=== PATIENT | female | born 1960 | race Caucasian/White ===

== ENCOUNTER 2016-04-21 15:31 | Inpatient (IN) | payer MEDICARE, OTHER ==
[~2016-04-21] VITALS: Ht 165.1 cm; Wt 82.9 kg
[2016-04-21] VITALS (338 sets, daily range): BP systolic 145–150; BP diastolic 90–94; PULSE 93–112; TEMP 97.5–98; O2SAT 90–100
[~2016-04-21 15:31] MED LIST: 00186-0370-20 IH; 00186-0372-20 IH; ACTOS 15MG TAB15 MG PO; ALBUTEROL0.09 MG/A4 IH; ALLEGRA180 MG PO; ALLEGRA60 MG PO; ALPRAZOLAM1 MG PO; ASACOL PO; ASPIRIN 81M81 MG/TA2 PO; BENADRYL PO; BENADRYL25 M2 PO; BENADRYL25 MG PO; BUSPAR DIVIDOSE15 MG PO; BYSTOLIC5 MG PO; CARAFATE 1GM1 G PO; CEFZIL250 MG PO; CELEXA10 MG PO; CHANTIX0.5 MG PO; CILOSTAZOL; CLONAZEPAM PO; CLOPIDOGREL PO; COLACE 100100 MG/CAP PO; DARVOCET N 101 UDTAB PO; DARVOCET-N-101 UDTAB PO; DIOVAN 160MG160 MG PO; DIOVAN PO; DIOVAN80 M1 PO; EXCEDRIN 250 MG1 TAB PO; EXCEDRIN BACK &1 TAB PO; EXCEDRIN1 TAB PO; FLUOXETINE PO; GEMCOR600 MG PO; GEODON 20 MG20 MG PO; GEODON80 MG PO; IBUPROFEN400 MG PO; LEVAQUIN 5500 MG/TA1 PO; LORTAB 5/500 501 TAB PO; MELATONIN3 M1 PO; MELOXICAM PO; NAPROSYN500 MG PO; NASONEX SPRAY; NASONEX SPRAY NS; NEXIUM 40MG40 MG PO; NEXIUM40 MG PO; NIACIN 250250 MG/CAP PO; NIASPAN500 MG PO; NORCO 325 MG-51 TAB PO; PLAVIX 75MG TAB75 MG PO; PRAVACHOL 40MG40 MG PO; PREDNISONE20 MG PO; PREMARIN0.625 MG PO; PROAIR HFA0.09 MG/AC IH; PROZAC 20MG20 MG PO; PROZAC40 MG PO; REMERON45 MG PO; ROBAXIN500 MG PO; ROZEREM 8MG TABL8 MG PO; SEROQUEL100 MG PO; STOOL SOFTENER100 MG PO; SYMBICORT1 AE2 IH; SYNTHROID0.05 MG/TA PO; TETRACYCLINE PO; TYLENOL 500MG500 MG PO; VALIUM 5MG T5 MG/TAB PO; WELLBUTRIN SR150 M1 PO; WELLBUTRIN XL150 MG PO; WELLBUTRIN XL300 M1 PO; XANAX 1MG1 MG PO; XANAX XR0.5 MG PO; XANAX0.5 MG PO; XANAX1 MG PO; ZIPRASIDONE; ZITHROMAX 250M250 MG PO; ZITHROMAX Z PA250 MG PO
[2016-04-21] MEDS ORDERED: IPRATROPIUM BROM3 M1 IH (15:51)
[2016-04-21 16:20] LABS: BASO # 0.1 (0.0-0.2); BASO % 0.3 % (0.0-2.0); EOS % 0.2 % (0-4.0); GRAN # 13.1 (1.4-6.5); GRAN % 80.4 % (42.2-75.2); HEMATOCRIT 39.4 % (37.0-47.0); HEMOGLOBIN 14.1 g/dl (12.5-16.0); LYMPH # 1.7 (1.2-3.4); LYMPH % 10.7 % (20.0-51.0); MEAN CELL VOLUME 80 fl (80.0-100.0); MEAN CORPUSCULAR HEMOGLOBIN 29 pg (27.0-31.0); MEAN CORPUSCULAR HGB CONC 36 g/dl (33.0-37.0); MEAN PLATELET VOLUME 8.3 fl (7.4-10.4); MONO # 1.2 (0.1-0.6); MONO % 7.2 % (1.7-9.3); PLATELET COUNT 419 K/mm3 (130-400); REDCELL DISTRIBUTION WIDTH-CV 13.3 % (11.5-14.5); WHITE BLOOD COUNT 16.3 K/mm3 (4.8-10.8)
[2016-04-21] MEDS ORDERED: BENADRYL25 M2 PO (16:37)
[2016-04-21] MEDS ORDERED: BUSPAR DIVIDOSE15 MG PO (16:38)
[2016-04-21] MEDS ORDERED: INVEGA9 MG PO (16:39)
[2016-04-21] MEDS ORDERED: PROZAC40 MG PO (16:40)
[2016-04-21 16:42] LABS: ADJUSTED CALCIUM 9.2 mg/dL (8.4-10.2); ALANINE AMINOTRANSFERASE 41 U/L (9-52); ALKALINE PHOSPHATASE 119 U/L (50-136); ANION GAP 13 mmol/L (7-16); BILIRUBIN,TOTAL 0.9 mg/dL (0.0-1.0); BLOOD UREA NITROGEN 10 mg/dL (7-17); CALCIUM 9.2 mg/dL (8.4-10.2); CARBON DIOXIDE 22 mmol/L (22-30); CREATININE, serum 0.59 mg/dL (0.52-1.25); GLUCOSE 219 mg/dL (74-106); POTASSIUM 3.1 mmol/L (3.4-5.0); TOTAL PROTEIN 7.1 gm/dL (6.4-8.2)
[2016-04-21 16:44] LABS: CHLORIDE 81 mmol/L (98-107); SODIUM 115 mmol/L (137-145)
[2016-04-21 16:53] LABS: B-TYPE NATRIURETIC PEPTIDE 4060 pg/mL (0-125)
[2016-04-21 16:58] LABS: TROPONIN-I < 0.012 ng/mL (0.000-0.034)
[2016-04-21] MEDS ORDERED: REMERON 15M15 MG/TA1 PO (16:58)
[2016-04-21] MEDS ORDERED: ROZEREM 8MG TABL8 MG PO (16:59)
[2016-04-21] MEDS ORDERED: COLACE 100100 MG/CAP PO (17:00)
[2016-04-21] MEDS ORDERED: PRAVACHOL 40MG40 MG PO (17:00)
[2016-04-21] MEDS ORDERED: MELAT3MGTAB PO (17:01)
[2016-04-21] MEDS ORDERED: ASPIRIN 81M81 MG/TA2 PO (17:01)
[2016-04-21] MEDS ORDERED: NEXIUM 20MG20 MG PO (17:02)
[2016-04-21] MEDS ORDERED: 00186-0372-20 (17:02)
[2016-04-21] MEDS ORDERED: GLUCOPHAGE500 MG/TAB PO (17:03)
[2016-04-21] MEDS ORDERED: BYSTOLIC10 MG PO (17:03)
[2016-04-21] MEDS ORDERED: XANAX 1MG1 MG PO (17:04)
[2016-04-21 21:13] LABS: PH 5 (5-8); SQUAMOUS EPITHELIAL 0-2 /hpf; URINE APPEARANCE Clear; URINE BACTERIA None Seen /hpf; URINE BILIRUBIN Negative (NEGATIVE); URINE BLOOD 2+ (NEGATIVE); URINE COLOR Straw; URINE GLUCOSE 3+ (NEGATIVE); URINE KETONE Trace (NEGATIVE); URINE RBC 0-2 /hpf; URINE UROBILINOGEN Negative (NEGATIVE); URINE WBC 0-2 /hpf
[2016-04-21 21:25] LABS: INFLUENZA B NEGATIVE
[2016-04-21 23:14] LABS: SODIUM 112 mmol/L (137-145)
[2016-04-22] VITALS (822 sets, daily range): BP systolic 120–162; BP diastolic 69–120; PULSE 98–121; TEMP 97–98.1; O2SAT 92–100
[2016-04-22 05:55] LABS: BASO % 0.1 % (0.0-2.0); EOS % 0.1 % (0-4.0); GRAN # 8.6 (1.4-6.5); GRAN % 78.5 % (42.2-75.2); HEMATOCRIT 38.9 % (37.0-47.0); HEMOGLOBIN 13.6 g/dl (12.5-16.0); LYMPH # 1.2 (1.2-3.4); LYMPH % 10.5 % (20.0-51.0); MEAN CELL VOLUME 82 fl (80.0-100.0); MEAN CORPUSCULAR HEMOGLOBIN 29 pg (27.0-31.0); MEAN CORPUSCULAR HGB CONC 35 g/dl (33.0-37.0); MEAN PLATELET VOLUME 8.4 fl (7.4-10.4); MONO % 9.2 % (1.7-9.3); PLATELET COUNT 439 K/mm3 (130-400); RED BLOOD COUNT 4.74 M/mm3 (4.10-5.30); REDCELL DISTRIBUTION WIDTH-CV 13.5 % (11.5-14.5); WHITE BLOOD COUNT 10.9 K/mm3 (4.8-10.8)
[2016-04-22 06:06] LABS: ADJUSTED CALCIUM 9.2 mg/dL (8.4-10.2); ALBUMIN 4.1 gm/dL (3.5-5.0); BILIRUBIN,TOTAL 0.7 mg/dL (0.0-1.0); CALCIUM 9.3 mg/dL (8.4-10.2); CREATININE, serum 0.6 mg/dL (0.52-1.25); POTASSIUM 3.3 mmol/L (3.4-5.0)
[2016-04-22 13:38] LABS: CALCIUM 9.2 mg/dL (8.4-10.2); CREATININE, serum 0.57 mg/dL (0.52-1.25); POTASSIUM 4.4 mmol/L (3.4-5.0)
[2016-04-22 14:03] LABS: ARTERIAL BLD GAS O2 SATURATION 94.5 % (92-100); ARTERIAL BLD GAS TCO2 CT 23.7; ARTERIAL BLOOD GAS BASE EXCESS -0.1 (-2-2); ARTERIAL BLOOD GAS HCO3 22.7 meq/L (22-26); ARTERIAL BLOOD GAS PHT 7.47 C (7.35-7.45); ARTERIAL BLOOD GAS PO2 72.1 mmHg (80-100); ARTERIAL BLOOD GAS PO2T 72.1 (80-100); ARTERIAL BLOOD GAS pH 7.47 (7.35-7.45); OXYHEMOGLOBIN 93.6 %
[2016-04-22 14:04] LABS: ALLEN TEST YES; ALLENS TEST RESULT PASS; ATS? YES
[2016-04-23 00:39] VITALS: BP 136/51; PULSE 100; TEMP 98.5
[2016-04-23 03:44] VITALS: BP 138/83; PULSE 78; TEMP 98.3
[2016-04-23 05:20] LABS: BASO % 0.1 % (0.0-2.0); GRAN % 86.3 % (42.2-75.2); HEMOGLOBIN 12.7 g/dl (12.5-16.0); LYMPH # 0.9 (1.2-3.4); LYMPH % 6.1 % (20.0-51.0); MEAN CELL VOLUME 83 fl (80.0-100.0); MEAN CORPUSCULAR HEMOGLOBIN 29 pg (27.0-31.0); MEAN CORPUSCULAR HGB CONC 35 g/dl (33.0-37.0); MEAN PLATELET VOLUME 8.7 fl (7.4-10.4); MONO # 0.9 (0.1-0.6); MONO % 6.1 % (1.7-9.3); PLATELET COUNT 406 K/mm3 (130-400); RED BLOOD COUNT 4.42 M/mm3 (4.10-5.30); REDCELL DISTRIBUTION WIDTH-CV 13.7 % (11.5-14.5)
[2016-04-23 05:22] LABS: HEMATOCRIT 36.5 % (37.0-47.0)
[2016-04-23 05:28] LABS: CALCIUM 8.9 mg/dL (8.4-10.2); CREATININE, serum 0.58 mg/dL (0.52-1.25); POTASSIUM 3.8 mmol/L (3.4-5.0)
[2016-04-23 07:28] VITALS: BP 138/71; PULSE 97; TEMP 98.7
[2016-04-23 11:55] VITALS: BP 129/69; PULSE 63; TEMP 97.5
[2016-04-23 15:48] VITALS: BP 146/81; PULSE 90; TEMP 97.7
[2016-04-23 19:46] VITALS: BP 141/69; PULSE 80; TEMP 98.4
[2016-04-24] VITALS (7 sets, daily range): BP systolic 110–146; BP diastolic 60–74; PULSE 70–90; TEMP 97.1–98.5
[2016-04-24 04:57] LABS: BASO % 0.1 % (0.0-2.0); GRAN # 12.6 (1.4-6.5); GRAN % 89.5 % (42.2-75.2); LYMPH # 0.7 (1.2-3.4); LYMPH % 4.7 % (20.0-51.0); MEAN CELL VOLUME 86 fl (80.0-100.0); MEAN CORPUSCULAR HGB CONC 34 g/dl (33.0-37.0); MEAN PLATELET VOLUME 8.8 fl (7.4-10.4); MONO # 0.7 (0.1-0.6); MONO % 4.8 % (1.7-9.3); PLATELET COUNT 325 K/mm3 (130-400); RED BLOOD COUNT 3.93 M/mm3 (4.10-5.30); REDCELL DISTRIBUTION WIDTH-CV 14.2 % (11.5-14.5); WHITE BLOOD COUNT 14.1 K/mm3 (4.8-10.8)
[2016-04-24 05:01] LABS: HEMATOCRIT 33.9 % (37.0-47.0); HEMOGLOBIN 11.5 g/dl (12.5-16.0); MEAN CORPUSCULAR HEMOGLOBIN 29 pg (27.0-31.0)
[2016-04-24 05:16] LABS: CALCIUM 8.9 mg/dL (8.4-10.2); CREATININE, serum 0.59 mg/dL (0.52-1.25); POTASSIUM 3.4 mmol/L (3.4-5.0)
[2016-04-25 03:31] VITALS: BP 143/80; PULSE 80; TEMP 97.8
[2016-04-25 08:54] VITALS: BP 126/74; PULSE 78; TEMP 97.5
[2016-04-25 09:26] LABS: POTASSIUM 3.1 mmol/L (3.4-5.0)
[2016-04-25] MEDS ORDERED: ZITHROMAX TRI-500 MG PO (11:26)
[2016-04-25] MEDS ORDERED: PREDNISONE20 MG PO (11:27)
[2016-04-25] MEDS ORDERED: KLOR-CON M2020 MEQ PO (11:29)
[2016-04-25 12:51] VITALS: BP 106/70; PULSE 90; TEMP 98.4
[2016-04-25 14:45] VITALS: BP 127/72; PULSE 85
== END 2016-04-25 16:33 | disposition home or self-care (01) | DRG 640 ==
LOC: COL.ER 15:31 → ICU 17:14 → COL.ER 17:14 → MEDICAL 04-22 15:20 → ICU 04-22 15:20 → MEDICAL 04-22 15:20
PROVIDERS: Emergency Medicine; Internal Medicine; Internal Medicine Nephrology
DX: E87.1 Hypo-osmolality and hyponatremia (principal); J96.01 Acute respiratory failure with hypoxia; I50.23 Acute on chronic systolic (congestive) heart failure; J44.1 Chronic obstructive pulmonary disease with (acute) exacerbation; E87.6 Hypokalemia; I10 Essential (primary) hypertension; E78.5 Hyperlipidemia, unspecified; E11.9 Type 2 diabetes mellitus without complications; F17.210 Nicotine dependence, cigarettes, uncomplicated; I73.9 Peripheral vascular disease, unspecified
CPT/HCPCS: 99223-AI; 99232-AI; 99233-AI; 99239; J0456; J0696; J1650; J1815; J1940; J1956; J2920; J2930; J7030; J7050; J7512

== ENCOUNTER → 2016-10-14 | Outpatient (CLI) | payer MEDICARE ==
[~2016-10-14] MED LIST changes: +00186-0372-20; +BYSTOLIC10 MG PO; +GLUCOPHAGE500 MG/TAB PO; +INVEGA9 MG PO; +IPRATROPIUM BROM3 M1 IH; +KLOR-CON M2020 MEQ PO; +MELAT3MGTAB PO; +NEXIUM 20MG20 MG PO; +REMERON 15M15 MG/TA1 PO; +ZITHROMAX TRI-500 MG PO
== END ==
LOC: MC.RAD 10-10 09:20
DX: Z12.31 Encounter for screening mammogram for malignant neoplasm of breast (principal)

== ENCOUNTER 2017-03-11 08:01 | Outpatient (RCR) | payer MEDICARE | END 2017-06-09 | disposition home or self-care (01) | LOC: MKS.ESL.PT | DX: M51.16 Intervertebral disc disorders with radiculopathy, lumbar region (principal) | CPT/HCPCS: G0283-GP; G8978-GP; G8979-GP ==

== ENCOUNTER → 2017-12-09 | Outpatient (CLI) | payer MEDICARE ==
[~2017-12-09] MED LIST changes: +ACTOS30 MG PO; +ANORO IH; +ASPIRIN E.C. 8181 MG PO; +BACTROBAN NASA0.9 GM NS; +BRILINTA90 MG PO; +FARXIGA10 PO; +FLONASEALLERGY NS; +GLUCOTROL10 MG PO; +MEDROL 4MG DOSPA4 MG PO; +NEURONTIN600 MG/TAB PO; +PRAVACHOL80 MG PO; +REXULTI3 MG PO; +TRULICITY0.75 MG/0. SQ; +VASOTEC 2.2.5 MG/TAB PO; +VENTOLIN0.09 MG IH; +VIIBRYD20 MG PO; +VOLTAREN GEL 1%1 TU TP; +ZEBETA 5MG5 MG PO
[2017-12-09 09:45] LABS: HEMATOCRIT 37.6 % (37.0-47.0); HEMOGLOBIN 11.8 g/dl (12.5-16.0); MEAN CELL VOLUME 85 fl (80.0-100.0); MEAN CORPUSCULAR HEMOGLOBIN 27 pg (27.0-31.0); MEAN CORPUSCULAR HGB CONC 31 g/dl (33.0-37.0); MEAN PLATELET VOLUME 8.8 fl (7.4-10.4); PLATELET COUNT 290 K/mm3 (130-400); RED BLOOD COUNT 4.44 M/mm3 (4.10-5.30); REDCELL DISTRIBUTION WIDTH-CV 20.4 % (11.5-14.5)
[2017-12-09 09:56] LABS: ALBUMIN 4.1 gm/dL (3.5-5.0); BILIRUBIN,TOTAL 0.3 mg/dL (0.0-1.0); CALCIUM 9.5 mg/dL (8.4-10.2); CREATININE, serum 0.73 mg/dL (0.52-1.25); POTASSIUM 3.7 mmol/L (3.4-5.0); TOTAL PROTEIN 7.1 gm/dL (6.4-8.2)
[2017-12-09 09:57] LABS: INR 0.9 (0.8-3.0); PROTHROMBIN TIME 10.5 SECONDS (9.7-12.8)
== END ==
LOC: COL.LAB 09:00
PROVIDERS: Family Medicine
DX: E11.9 Type 2 diabetes mellitus without complications (principal); I10 Essential (primary) hypertension; J44.9 Chronic obstructive pulmonary disease, unspecified; I42.9 Cardiomyopathy, unspecified; I25.2 Old myocardial infarction; F25.9 Schizoaffective disorder, unspecified; I73.9 Peripheral vascular disease, unspecified

== ENCOUNTER → 2017-12-10 | Outpatient (CLI) | payer MEDICARE ==
[2017-12-10 12:17] LABS: HEMATOCRIT 39.6 % (37.0-47.0); HEMOGLOBIN 12.3 g/dl (12.5-16.0); MEAN CELL VOLUME 86 fl (80.0-100.0); MEAN CORPUSCULAR HEMOGLOBIN 27 pg (27.0-31.0); MEAN CORPUSCULAR HGB CONC 31 g/dl (33.0-37.0); PLATELET COUNT 357 K/mm3 (130-400); RED BLOOD COUNT 4.59 M/mm3 (4.10-5.30); REDCELL DISTRIBUTION WIDTH-CV 20.5 % (11.5-14.5)
[2017-12-10 12:18] LABS: ALBUMIN 4.4 gm/dL (3.5-5.0); BILIRUBIN,TOTAL 0.4 mg/dL (0.0-1.0); CALCIUM 10.4 mg/dL (8.4-10.2); CREATININE, serum 0.93 mg/dL (0.52-1.25); POTASSIUM 4.4 mmol/L (3.4-5.0); TOTAL PROTEIN 7.3 gm/dL (6.4-8.2)
[2017-12-10 12:19] LABS: INR 0.9 (0.8-3.0); PROTHROMBIN TIME 10.2 SECONDS (9.7-12.8)
[2017-12-10 12:38] LABS: BAND 5 % (0-10); EOSINOPHIL 1 % (0-4); LYMPHOCYTE 25 % (20.0-51.0); NEUTROPHILS 67 % (42.0-75.2); PLATELET ESTIMATE NORMAL (NORMAL)
== END ==
LOC: ZCOL.LAB 12:01
PROVIDERS: Family Medicine
DX: J44.1 Chronic obstructive pulmonary disease with (acute) exacerbation (principal); Z79.82 Long term (current) use of aspirin

== ENCOUNTER 2018-07-17 13:11 | Emergency (ER) | payer MEDICARE ==
[~2018-07-17] VITALS: Ht 165.1 cm; Wt 75.5 kg
[2018-07-17 13:27] VITALS: TEMP 97.4
[2018-07-17 13:50] LABS: COLLECTION METHOD CLEAN CATCH
[2018-07-17 14:02] LABS: BUDDING YEAST Present /hpf; PH 5 (5-8); SQUAMOUS EPITHELIAL 0-2 /hpf; URINE APPEARANCE Cloudy; URINE BACTERIA None Seen /hpf; URINE BILIRUBIN Negative (NEGATIVE); URINE BLOOD 1+ (NEGATIVE); URINE COLOR Yellow; URINE GLUCOSE 3+ (NEGATIVE); URINE KETONE Negative (NEGATIVE); URINE LEUKOCYTE ESTERASE 3+ (NEGATIVE); URINE NITRATE Negative (NEGATIVE); URINE PROTEIN(semi-quant) 1+ (NEGATIVE); URINE UROBILINOGEN Negative (NEGATIVE)
[2018-07-17 14:14] LABS: BASO % 0.4 % (0.0-2.0); EOS # 0.1 (0.0-0.7); EOS % 1.9 % (0-4.0); GRAN # 5.6 (1.4-6.5); GRAN % 74.8 % (42.2-75.2); HEMATOCRIT 38.7 % (37.0-47.0); HEMOGLOBIN 11.6 g/dl (12.5-16.0); LYMPH # 1.2 (1.2-3.4); LYMPH % 15.7 % (20.0-51.0); MEAN CELL VOLUME 76 fl (80.0-100.0); MEAN CORPUSCULAR HEMOGLOBIN 23 pg (27.0-31.0); MEAN CORPUSCULAR HGB CONC 30 g/dl (33.0-37.0); MONO # 0.5 (0.1-0.6); MONO % 6.5 % (1.7-9.3); PLATELET COUNT 239 K/mm3 (130-400); REDCELL DISTRIBUTION WIDTH-CV 19.9 % (11.5-14.5)
[2018-07-17 14:28] LABS: ALBUMIN 3.9 gm/dL (3.5-5.0); BILIRUBIN,TOTAL 0.3 mg/dL (0.0-1.0); C-REACTIVE PROTEIN 3.9 mg/dL (0.0-0.9); CALCIUM 9.7 mg/dL (8.4-10.2); CREATININE, serum 0.8 (0.52-1.25); POTASSIUM 4.1 mmol/L (3.4-5.0); TOTAL PROTEIN 6.8 gm/dL (6.4-8.2)
[2018-07-17] MEDS ORDERED: PYRIDIUM 100MG100 MG PO (15:14)
[2018-07-17] MEDS ORDERED: MACROBID 1100 MG/CAP PO (15:14)
[2018-07-17 15:41] VITALS: BP 122/85; PULSE 96
== END 2018-07-17 15:42 | disposition home or self-care (01) ==
LOC: COL.ER 13:11
PROVIDERS: Nurse Practitioner
DX: N39.0 Urinary tract infection, site not specified (principal); E11.9 Type 2 diabetes mellitus without complications; E78.5 Hyperlipidemia, unspecified; I10 Essential (primary) hypertension; F17.210 Nicotine dependence, cigarettes, uncomplicated; F32.9 Major depressive disorder, single episode, unspecified; Z90.49 Acquired absence of other specified parts of digestive tract; Z90.710 Acquired absence of both cervix and uterus; Z95.818 Presence of other cardiac implants and grafts; Z79.82 Long term (current) use of aspirin; Z79.51 Long term (current) use of inhaled steroids

== ENCOUNTER → 2018-07-30 | Outpatient (CLI) | payer MEDICARE ==
[~2018-07-30] MED LIST changes: +MACROBID 1100 MG/CAP PO; +PYRIDIUM 100MG100 MG PO
== END ==
LOC: COL.RAD 07:34
DX: Z01.812 Encounter for preprocedural laboratory examination (principal); I70.0 Atherosclerosis of aorta; R31.29 Other microscopic hematuria; Z90.49 Acquired absence of other specified parts of digestive tract; Z90.710 Acquired absence of both cervix and uterus; Z98.890 Other specified postprocedural states
CPT/HCPCS: Q9967

== ENCOUNTER → 2019-03-08 | Outpatient (CLI) | payer MEDICARE, OTHER | LOC: MC.RAD 10:18 | DX: Z12.31 Encounter for screening mammogram for malignant neoplasm of breast (principal) ==

== ENCOUNTER 2020-05-23 07:43 | Emergency (ER) | payer MEDICARE ==
[~2020-05-23] VITALS: Ht 165.1 cm; Wt 61.4 kg
[~2020-05-23 07:43] MED LIST changes: -MELAT3MGTAB PO; +MELATIN 3 MG-11 TAB PO
[2020-05-23 08:01] VITALS: BP 143/74; TEMP 98
[2020-05-23 08:09] LABS: COLLECTION METHOD CLEAN CATCH
[2020-05-23 08:16] LABS: MUCOUS Present /lpf; PH 5 (5-8); SQUAMOUS EPITHELIAL 0-2 /hpf; URINE APPEARANCE Hazy; URINE BACTERIA Moderate /hpf; URINE BILIRUBIN Negative (NEGATIVE); URINE BLOOD Negative (NEGATIVE); URINE COLOR Yellow; URINE GLUCOSE Negative (NEGATIVE); URINE KETONE Negative (NEGATIVE); URINE LEUKOCYTE ESTERASE 1+ (NEGATIVE); URINE NITRATE Negative (NEGATIVE); URINE PROTEIN(semi-quant) 1+ (NEGATIVE); URINE RBC 0-2 /hpf; URINE UROBILINOGEN Negative (NEGATIVE)
[2020-05-23 08:40] LABS: BASO % 0.5 % (0.0-2.0); EOS # 0.2 (0.0-0.7); EOS % 2.3 % (0-4.0); GRAN # 5.2 (1.4-6.5); HEMATOCRIT 36.8 % (37.0-47.0); HEMOGLOBIN 11.1 g/dl (12.5-16.0); LYMPH # 1.9 (1.2-3.4); LYMPH % 24.3 % (20.0-51.0); MEAN CELL VOLUME 82 fl (80.0-100.0); MEAN CORPUSCULAR HEMOGLOBIN 25 pg (27.0-31.0); MEAN CORPUSCULAR HGB CONC 30 g/dl (33.0-37.0); MEAN PLATELET VOLUME 8.2 fl (7.4-10.4); MONO # 0.4 (0.1-0.6); MONO % 5.4 % (1.7-9.3); PLATELET COUNT 272 K/mm3 (130-400); RED BLOOD COUNT 4.51 M/mm3 (4.10-5.30); REDCELL DISTRIBUTION WIDTH-CV 17.4 % (11.5-14.5)
[2020-05-23 08:50] LABS: ALANINE AMINOTRANSFERASE 10 U/L (4-34); ALBUMIN 3.8 gm/dL (3.5-5.0); ALKALINE PHOSPHATASE 103 U/L (50-136); ANION GAP 8 mmol/L (7-16); AST,SGOT 20 U/L (15-37); BILIRUBIN,TOTAL < 0.1 mg/dL (0.0-1.0); BLOOD UREA NITROGEN 10 mg/dL (7-17); CARBON DIOXIDE 23 mmol/L (22-30); CHLORIDE 105 mmol/L (98-107); CREATININE, serum 0.63 (0.52-1.25); GLUCOSE 146 mg/dL (74-106); POTASSIUM 4.1 mmol/L (3.4-5.0); SODIUM 136 mmol/L (137-145); TOTAL PROTEIN 6.5 gm/dL (6.4-8.2)
[2020-05-23] MEDS ORDERED: MACROBID 1100 MG/CAP PO (09:13)
[2020-05-23 09:27] VITALS: PULSE 77
== END 2020-05-23 09:28 | disposition home or self-care (01) ==
LOC: COL.ER 07:43
PROVIDERS: Emergency Medicine
DX: J39.2 Other diseases of pharynx (principal); N39.0 Urinary tract infection, site not specified; J44.9 Chronic obstructive pulmonary disease, unspecified; E11.9 Type 2 diabetes mellitus without complications; I25.10 Atherosclerotic heart disease of native coronary artery without angina pectoris; I10 Essential (primary) hypertension; F25.9 Schizoaffective disorder, unspecified; F32.9 Major depressive disorder, single episode, unspecified; F17.210 Nicotine dependence, cigarettes, uncomplicated; Z79.02 Long term (current) use of antithrombotics/antiplatelets; Z79.82 Long term (current) use of aspirin; Z95.9 Presence of cardiac and vascular implant and graft, unspecified; Z88.0 Allergy status to penicillin; Z88.2 Allergy status to sulfonamides; Z88.6 Allergy status to analgesic agent; Z88.8 Allergy status to other drugs, medicaments and biological substances; Z79.84 Long term (current) use of oral hypoglycemic drugs

== ENCOUNTER 2020-09-10 13:37 | Emergency (ER) | payer MEDICARE, OTHER ==
[~2020-09-10] VITALS: Ht 162.6 cm; Wt 65.9 kg
[2020-09-10 13:38] VITALS: TEMP 96.5
[2020-09-10 14:23] LABS: BASO % 0.4 % (0.0-2.0); EOS # 0.2 (0.0-0.7); EOS % 1.5 % (0-4.0); GRAN # 9.3 (1.4-6.5); GRAN % 82.2 % (42.2-75.2); LYMPH # 1.3 (1.2-3.4); LYMPH % 11.2 % (20.0-51.0); MEAN CELL VOLUME 81 fl (80.0-100.0); MEAN CORPUSCULAR HEMOGLOBIN 23 pg (27.0-31.0); MEAN CORPUSCULAR HGB CONC 28 g/dl (33.0-37.0); MONO # 0.5 (0.1-0.6); PLATELET COUNT 251 K/mm3 (130-400); RED BLOOD COUNT 4.38 M/mm3 (4.10-5.30); REDCELL DISTRIBUTION WIDTH-CV 19.2 % (11.5-14.5)
[2020-09-10 14:24] LABS: HEMATOCRIT 35.6 % (37.0-47.0)
[2020-09-10 14:37] LABS: ALBUMIN 3.9 gm/dL (3.5-5.0); BILIRUBIN,TOTAL 0.2 mg/dL (0.0-1.0); CALCIUM 9.5 mg/dL (8.4-10.2); CREATININE, serum 0.68 (0.52-1.25); POTASSIUM 3.7 mmol/L (3.4-5.0); TOTAL PROTEIN 6.8 gm/dL (6.4-8.2)
[2020-09-10 16:21] LABS: MUCOUS Present /lpf; PH 5 (5-8); SQUAMOUS EPITHELIAL 0-2 /hpf; URINE APPEARANCE Cloudy; URINE BACTERIA Rare /hpf; URINE BILIRUBIN Negative (NEGATIVE); URINE BLOOD 2+ (NEGATIVE); URINE COLOR Yellow; URINE GLUCOSE Negative (NEGATIVE); URINE KETONE Negative (NEGATIVE); URINE LEUKOCYTE ESTERASE 3+ (NEGATIVE); URINE NITRATE Negative (NEGATIVE); URINE PROTEIN(semi-quant) 2+ (NEGATIVE); URINE UROBILINOGEN Negative (NEGATIVE)
[2020-09-10 16:27] LABS: COLLECTION METHOD CATHETER
[2020-09-10] MEDS ORDERED: CEFTIN500 MG PO (16:36)
[2020-09-10] MEDS ORDERED: PREDNISONE10 MG PO (16:37)
[2020-09-10 16:47] VITALS: BP 139/88; PULSE 102
== END 2020-09-10 18:28 | disposition home or self-care (01) ==
LOC: COL.ER 13:37
PROVIDERS: Family Medicine
DX: J20.9 Acute bronchitis, unspecified (principal); N39.0 Urinary tract infection, site not specified; J44.9 Chronic obstructive pulmonary disease, unspecified; I10 Essential (primary) hypertension; E11.9 Type 2 diabetes mellitus without complications; F25.9 Schizoaffective disorder, unspecified; Z88.2 Allergy status to sulfonamides; Z79.899 Other long term (current) drug therapy
CPT/HCPCS: J1885; J2930

== ENCOUNTER 2020-10-18 22:10 | Inpatient (IN) | payer MEDICARE, OTHER ==
[~2020-10-18] VITALS: Ht 170.2 cm; Wt 65.9 kg
[~2020-10-18 22:10] MED LIST changes: +CEFTIN500 MG PO; +PREDNISONE10 MG PO
[2020-10-18 22:26] LABS: BASO # 0.1 (0.0-0.2); BASO % 0.5 % (0.0-2.0); EOS # 0.3 (0.0-0.7); EOS % 1.8 % (0-4.0); GRAN # 12.4 (1.4-6.5); GRAN % 75.6 % (42.2-75.2); LYMPH # 2.7 (1.2-3.4); LYMPH % 16.5 % (20.0-51.0); MEAN CELL VOLUME 84 fl (80.0-100.0); MEAN CORPUSCULAR HGB CONC 27 g/dl (33.0-37.0); MEAN PLATELET VOLUME 9.1 fl (7.4-10.4); MONO # 0.8 (0.1-0.6); MONO % 4.7 % (1.7-9.3); PLATELET COUNT 350 K/mm3 (130-400); RED BLOOD COUNT 4.11 M/mm3 (4.10-5.30); REDCELL DISTRIBUTION WIDTH-CV 19.6 % (11.5-14.5)
[2020-10-18 22:29] LABS: HEMATOCRIT 34.5 % (37.0-47.0); HEMOGLOBIN 9.2 g/dl (12.5-16.0); MEAN CORPUSCULAR HEMOGLOBIN 22 pg (27.0-31.0)
[2020-10-18 22:40] LABS: ALANINE AMINOTRANSFERASE 18 U/L (4-34); ALKALINE PHOSPHATASE 130 U/L (50-136); ANION GAP 11 mmol/L (7-16); AST,SGOT 47 U/L (15-37); BILIRUBIN,TOTAL < 0.1 mg/dL (0.0-1.0); BLOOD UREA NITROGEN 14 mg/dL (7-17); CALCIUM 8.8 mg/dL (8.4-10.2); CARBON DIOXIDE 20 mmol/L (22-30); CHLORIDE 109 mmol/L (98-107); CREATININE, serum 0.67 (0.52-1.25); GLUCOSE 235 mg/dL (74-106); POTASSIUM 3.8 mmol/L (3.4-5.0); SODIUM 139 mmol/L (137-145); TOTAL PROTEIN 6.7 gm/dL (6.4-8.2)
[2020-10-18 22:50] LABS: TROPONIN-I 0.016 ng/mL (0.000-0.035)
[2020-10-18 22:55] LABS: COLLECTION METHOD CLEAN CATCH
[2020-10-18 23:02] LABS: ARTERIAL BLD GAS O2 SATURATION 95.5 % (92-100); ARTERIAL BLD GAS TCO2 CT 20.4; ARTERIAL BLOOD GAS BASE EXCESS -7.2 (-2-2); ARTERIAL BLOOD GAS HCO3 19.2 meq/L (22-26); ARTERIAL BLOOD GAS PO2 86.7 mmHg (80-100); ARTERIAL BLOOD GAS pH 7.28 (7.35-7.45)
[2020-10-18 23:05] LABS: MUCOUS Present /lpf; PH 5 (5-8); SQUAMOUS EPITHELIAL 0-2 /hpf; URINE APPEARANCE Hazy; URINE BACTERIA Rare /hpf; URINE BILIRUBIN Negative (NEGATIVE); URINE BLOOD Negative (NEGATIVE); URINE COLOR Yellow; URINE GLUCOSE 2+ (NEGATIVE); URINE KETONE Negative (NEGATIVE); URINE LEUKOCYTE ESTERASE 2+ (NEGATIVE); URINE NITRATE Negative (NEGATIVE); URINE PROTEIN(semi-quant) 2+ (NEGATIVE); URINE UROBILINOGEN Negative (NEGATIVE); URINE WBC >50 /hpf
[2020-10-19] MEDS ORDERED: BYSTOLIC2.5 MG PO (03:23)
[2020-10-19] MEDS ORDERED: TRIAMC 0.1 454 TOP (03:25)
[2020-10-19] MEDS ORDERED: NITROSTAT0.4 MG/TAB SL (03:26)
[2020-10-19] MEDS ORDERED: LIPITOR 40MG TA40 MG PO (03:27)
[2020-10-19] MEDS ORDERED: GLUCOPHAGE500 MG/TAB PO (03:28)
[2020-10-19] MEDS ORDERED: WELLBUTRIN XL150 MG PO (03:29)
[2020-10-19] MEDS ORDERED: REMERON 15M15 MG/TA1 PO ×2 (03:29→04:17)
[2020-10-19 03:30] VITALS: BP 150/78; PULSE 114; TEMP 97.6
[2020-10-19] MEDS ORDERED: PLAVIX 75MG TAB75 MG PO (03:30)
[2020-10-19] MEDS ORDERED: FLONASE NASAL S16 GM NS (03:30)
--- NOTE | 2020-10-19 03:30 | NUR ---
PATIENT CAME UP TO FLOOR FROM ED. PATIENT ADMITTED FOR UTI AND PNEUMONIA AND COPD EXACERBATION. VSS NOW. PATIENT GOING TO RESTROOM NOW. PATIENT HAS IV TO THE RIGHT AC. PATIENT HAS 2L MC AND IS SATING 93% PATIENT GI CONSULT FOR DIARRHEA AND POSSIBLE EGD. NO FURTHER NEEDS AT THIS TIME. CALL LIGHT WITIN REACH. HEAD TO TOE ASSESSMENT COMPLETE.
[2020-10-19] MEDS ORDERED: REXULTI3 MG PO (03:31)
[2020-10-19] MEDS ORDERED: PERIDEX (CHLOR480 ML MM (03:31)
[2020-10-19] MEDS ORDERED: NEXIUM 40MG40 MG PO (03:32)
[2020-10-19] MEDS ORDERED: ANORO IH (04:17)
[2020-10-19 06:55] LABS: MEAN CELL VOLUME 82 fl (80.0-100.0); MEAN CORPUSCULAR HGB CONC 28 g/dl (33.0-37.0); MEAN PLATELET VOLUME 9.4 fl (7.4-10.4); RED BLOOD COUNT 3.89 M/mm3 (4.10-5.30); REDCELL DISTRIBUTION WIDTH-CV 19.2 % (11.5-14.5)
[2020-10-19 06:58] LABS: CALCIUM 9.2 mg/dL (8.4-10.2); CREATININE, serum 0.58 (0.52-1.25); POTASSIUM 3.6 mmol/L (3.4-5.0)
[2020-10-19 07:00] LABS: MEAN CORPUSCULAR HEMOGLOBIN 23 pg (27.0-31.0); PLATELET COUNT 220 K/mm3 (130-400)
[2020-10-19 07:35] LABS: LYMPHOCYTE 5 % (20.0-51.0); NEUTROPHILS 94 % (42.0-75.2); PLATELET ESTIMATE NORMAL (NORMAL)
[2020-10-19 07:36] LABS: ANISOCYTOSIS 1+; HYPOCHROMIA 3+
[2020-10-19 08:30] VITALS: BP 129/67; PULSE 96; TEMP 98.4
--- NOTE | 2020-10-19 09:00 | NUR ---
PT RESTING IN BED. ECHO COMPLETE. PT ON O2 PNC. RASH TO RIGHT FOOT. PT GAVE SPUTUM SAMPLE BUT LAB REPORTS NOTHING IN CONTAINER. REORDER SPUTUM SAMPLE.
--- NOTE | 2020-10-19 11:10 | NUR ---
line worker met with patient to discuss discharge plan. Patient lives at home with her Jesse ([phone]). Patient reports that she is independent on all activities of daily living and uses no medical equipmet to assist with mobility. Patient's PCP is Dr. Stauffer and uses [facility] for perscriptions. Patient reports no trobles affording medications. Patient has a DPOA-HC established and it is on file with the hospital. Plans are to return home with her . *Discharge Plan: Home with spouse*
[2020-10-19 11:32] VITALS: BP 142/64; PULSE 105; TEMP 98.3
[2020-10-19 15:27] VITALS: BP 129/51; PULSE 104; TEMP 97.5
[2020-10-19 19:39] VITALS: BP 129/64; PULSE 94; TEMP 97.9
--- NOTE | 2020-10-19 20:00 | NUR ---
PATIENT IS ALERT AND ORIENTED X4. PATIENT SITTING UP IN BED. AMBULATING TO BATHROOM. STEADY GAIT AND INDEPENDENT IN ROOM. PATIENT COMPLAINS OF COUGH. CALLED FOR ORDERS FOR MEDS. PATIENT DOES HAVE SOME WHEEZING ON RIGHT LUNG FIELD. PATIENT SET TO HAVE COLONOSCOPY AND EGD TOMORROW. TO BE NPO AT 6AM. PATIENT DENIES PAIN OR OTHER NEEDS AT THIS TIME. PATIENT HAS IV TO RIGHT FOREARM. NO REDNESS, DRAINAGE, OR SWELLING. CALL LIGHT WITHIN REACH. HEAD TO TOE ASSESSMENT COMPLETE.
[2020-10-19 23:49] VITALS: BP 93/68; PULSE 115; TEMP 98.1
[2020-10-20] VITALS (12 sets, daily range): BP systolic 112–162; BP diastolic 50–97; PULSE 89–124; TEMP 97.6–98.3
--- NOTE | 2020-10-20 05:57 | NUR ---
PATIENT SLEEPING IN BED. PATIENT DID WELL THROUGHOUT THE NIGHT. UP MULTIPLE TIMES TO USE BATHROOM. STOOL SAMPLE COLLECTED. PATIENT DENIES FURTHER NEEDS AT THIS TIME. WILL REPORT TO DAY SHIFT.
--- NOTE | 2020-10-20 08:00 | NUR ---
PATIENT IS A&O AND SITTING UP IN BED DRINKING BOWL PREP. PATIENT IS NPO FOR EGD/COLON TODAY. CONSENT ON CHART. INDEPDENT IN ROOM. COMMODE AT BEDSIDE. VSS ON TELE. PATIENT ON 2L PER NC WITH SATS IN LOW 90'S. PATIENT IS A SMOKER AND HAS HX OF COPD. HEAD TO TOE ASSESSMENT COMPLETE. CALL LIGHT IN REACH.
--- NOTE | 2020-10-20 13:32 | NUR ---
TELE CALLED, PATIENT HR IN THE 130-140'S, SINUS. PATIENT REPORTS SHE FEELS ANXIOUS AND STATES SHE TAKES XANAX AT HOME BID. CALLED PROVIDER, SEE ORDERS FOR IV XANAX NOW.
--- NOTE | 2020-10-20 13:50 | NUR ---
PATIENT'S HR STILL IN THE 140-150'S ON TELE. WATER POLLUTION CONTROL INSPECTOR REPORTS ST. PATIENT STATES SHE STILL FEELS ANXIOUS. CALLED HOSPITALIST BACK, SEE ORDERS FOR STAT EKG, CXR & LABS.
--- NOTE | 2020-10-20 14:35 | NUR ---
ENDO CALLED AND REPORTS THEY WOULD STILL LIKE TO BRING PATIENT DOWN AND EVAL HER THEMSELVES FOR POSSIBLE EGD/COLON PREVIOUSLY SCHEDULED. TROPONIN STILL PENDING.
--- NOTE | 2020-10-20 15:18 | NUR ---
PATIENT GOING DOWN TO ENDO.
--- NOTE | 2020-10-20 16:15 | NUR ---
PATIENT BACK IN ROOM FROM ENDO. A&O. HR AT 115 ON TELE. ALL OTHER VSS. PATIENT ASKING TO EAT. ENDO NURSE CONFIRMED WAS OKAY WITH PATIENT EATING. DISCUSSED WITH , SEE ORDERS.
--- NOTE | 2020-10-20 20:15 | NUR ---
ASKING FOR HS MEDS, PROVIDED AT THIS TIME. IS ALERT AND ORIENTED X4. HAS O2 AT 2L/HI NIRANJAN NC. LUNGS SOUND DIMINISHED THROUGHOUT. SL TO RT AC, FLUSHES WELL. STANDBY ASSIST TO BR.
--- NOTE | 2020-10-20 23:50 | NUR ---
TYLENOL 650MG PO FOR HEADACHE.
[2020-10-21 03:12] VITALS: BP 115/50; PULSE 87; TEMP 97.8
--- NOTE | 2020-10-21 06:20 | NUR ---
PT COMPLAINS OF HEADACHE, TYLENOL GIVEN.
[2020-10-21 08:00] VITALS: BP 138/74; PULSE 90; TEMP 97.9
[2020-10-21] MEDS ORDERED: OMNICEF 300MG300 MG PO (09:35)
[2020-10-21] MEDS ORDERED: PROTONIX 40MG T40 MG PO (09:36)
[2020-10-21] MEDS ORDERED: PREDNISONE10 MG PO (09:37)
--- NOTE | 2020-10-21 09:46 | NUR ---
PT SEEN BY MEDICAL PROVIDERS AND WILL DISCHARGE HOME THIS AM. PT INDEPENDENT IN ROOM.
--- NOTE | 2020-10-21 13:44 | NUR ---
DISCHARGE INSTRUCTIONS PROVIDED TO PT. PT LEFT PER WHEEL CHAIR AND POV.
== END 2020-10-21 12:15 | disposition home or self-care (01) | DRG 871 ==
LOC: COL.ER 22:10 → SURG 10-19 01:58
PROVIDERS: Internal Medicine Gastroenterology; Student in an Organized Health Care Education/Training Program; ADMIT Student in an Organized Health Care Education/Training Program
PROC: 0DB78ZX Excision of Stomach, Pylorus, Via Natural or Artificial Opening Endoscopic, Diagnostic (ICD-10-PCS; principal; 2020-10-20 15:00)
PROC: 0DJD8ZZ Inspection of Lower Intestinal Tract, Via Natural or Artificial Opening Endoscopic (ICD-10-PCS; 2020-10-20 15:00)
DX: A41.9 Sepsis, unspecified organism (principal); J96.01 Acute respiratory failure with hypoxia; J18.9 Pneumonia, unspecified organism; N39.0 Urinary tract infection, site not specified; E87.2 Acidosis; J44.1 Chronic obstructive pulmonary disease with (acute) exacerbation; J44.0 Chronic obstructive pulmonary disease with (acute) lower respiratory infection; J90 Pleural effusion, not elsewhere classified; K92.1 Melena; I51.81 Takotsubo syndrome; I42.9 Cardiomyopathy, unspecified; D62 Acute posthemorrhagic anemia; K59.00 Constipation, unspecified; I25.10 Atherosclerotic heart disease of native coronary artery without angina pectoris; E11.9 Type 2 diabetes mellitus without complications; F41.9 Anxiety disorder, unspecified; F25.9 Schizoaffective disorder, unspecified; K27.9 Peptic ulcer, site unspecified, unspecified as acute or chronic, without hemorrhage or perforation; Z20.822 Contact with and (suspected) exposure to COVID-19; R53.81 Other malaise; F41.0 Panic disorder [episodic paroxysmal anxiety]; K57.90 Diverticulosis of intestine, part unspecified, without perforation or abscess without bleeding; F17.210 Nicotine dependence, cigarettes, uncomplicated; K64.8 Other hemorrhoids; Z90.49 Acquired absence of other specified parts of digestive tract; Z90.710 Acquired absence of both cervix and uterus; Z90.89 Acquired absence of other organs; Z95.818 Presence of other cardiac implants and grafts
CPT/HCPCS: 99223-AI; 99233-AI; 99239; J0692; J1815; J1956; J2060; J2704; J2920; J2930; J3370; J7050; J7120; Q9967

== ENCOUNTER 2020-11-17 13:12 | Emergency (ER) | payer MEDICARE, MEDICAID ==
[~2020-11-17] VITALS: Ht 162.6 cm; Wt 62.3 kg
[~2020-11-17 13:12] MED LIST changes: +BYSTOLIC2.5 MG PO; +FLONASE NASAL S16 GM NS; +LIPITOR 40MG TA40 MG PO; +NITROSTAT0.4 MG/TAB SL; +OMNICEF 300MG300 MG PO; +PERIDEX (CHLOR480 ML MM; +PROTONIX 40MG T40 MG PO; +TRIAMC 0.1 454 TOP
[2020-11-17 13:33] VITALS: TEMP 98.5
[2020-11-17 14:02] LABS: BASO # 0.1 (0.0-0.2); BASO % 0.4 % (0.0-2.0); EOS # 0.1 (0.0-0.7); EOS % 0.8 % (0-4.0); GRAN # 9.3 (1.4-6.5); HEMATOCRIT 32.2 % (37.0-47.0); HEMOGLOBIN 9.5 g/dl (12.5-16.0); LYMPH # 1.3 (1.2-3.4); LYMPH % 11.3 % (20.0-51.0); MEAN CELL VOLUME 77 fl (80.0-100.0); MEAN CORPUSCULAR HEMOGLOBIN 23 pg (27.0-31.0); MEAN CORPUSCULAR HGB CONC 30 g/dl (33.0-37.0); MEAN PLATELET VOLUME 8.7 fl (7.4-10.4); MONO # 0.6 (0.1-0.6); MONO % 5.3 % (1.7-9.3); PLATELET COUNT 358 K/mm3 (130-400); RED BLOOD COUNT 4.17 M/mm3 (4.10-5.30)
[2020-11-17 14:09] LABS: ALBUMIN 3.9 gm/dL (3.5-5.0); BILIRUBIN,TOTAL 0.4 mg/dL (0.0-1.0); CALCIUM 7.5 mg/dL (8.4-10.2); CREATININE, serum 0.57 (0.52-1.25); TOTAL PROTEIN 6.9 gm/dL (6.4-8.2)
[2020-11-17 14:11] LABS: MAGNESIUM 0.4 mg/dL (1.6-2.3); POTASSIUM 2.5 mmol/L (3.4-5.0)
[2020-11-17 16:29] LABS: COLLECTION METHOD CLEAN CATCH
[2020-11-17 16:52] LABS: BUDDING YEAST Present /hpf; PH 6 (5-8); SQUAMOUS EPITHELIAL 0-2 /hpf; URINE APPEARANCE Clear; URINE BACTERIA None Seen /hpf; URINE BILIRUBIN Negative (NEGATIVE); URINE BLOOD Negative (NEGATIVE); URINE COLOR Yellow; URINE GLUCOSE Negative (NEGATIVE); URINE KETONE Negative (NEGATIVE); URINE LEUKOCYTE ESTERASE 1+ (NEGATIVE); URINE NITRATE Negative (NEGATIVE); URINE PROTEIN(semi-quant) Negative (NEGATIVE); URINE UROBILINOGEN Negative (NEGATIVE)
[2020-11-17] MEDS ORDERED: MACROBID 1100 MG/CAP PO (17:23)
[2020-11-17 20:01] VITALS: BP 146/70; PULSE 72
== END 2020-11-17 20:01 | disposition home or self-care (01) ==
LOC: COL.ER 13:12
PROVIDERS: Emergency Medicine
DX: E87.6 Hypokalemia (principal); E83.42 Hypomagnesemia; J44.9 Chronic obstructive pulmonary disease, unspecified; I25.10 Atherosclerotic heart disease of native coronary artery without angina pectoris; E11.9 Type 2 diabetes mellitus without complications; I10 Essential (primary) hypertension; F25.9 Schizoaffective disorder, unspecified; F32.9 Major depressive disorder, single episode, unspecified; Z90.49 Acquired absence of other specified parts of digestive tract; Z90.710 Acquired absence of both cervix and uterus; Z79.899 Other long term (current) drug therapy; Z79.82 Long term (current) use of aspirin; Z79.02 Long term (current) use of antithrombotics/antiplatelets; Z79.84 Long term (current) use of oral hypoglycemic drugs
CPT/HCPCS: J3475; J3480; J7030

== ENCOUNTER 2021-01-23 08:44 | Observation (INO) | payer MEDICARE, MEDICAID ==
[~2021-01-23] VITALS: Ht 165.1 cm; Wt 60.0 kg
[2021-01-23 09:07] LABS: MEAN CELL VOLUME 75 fl (80.0-100.0); MEAN CORPUSCULAR HGB CONC 28 g/dl (33.0-37.0); PLATELET COUNT 321 K/mm3 (130-400); RED BLOOD COUNT 4.06 M/mm3 (4.10-5.30); REDCELL DISTRIBUTION WIDTH-CV 18.6 % (11.5-14.5)
[2021-01-23 09:18] LABS: HEMATOCRIT 30.4 % (37.0-47.0); HEMOGLOBIN 8.4 g/dl (12.5-16.0); MEAN CORPUSCULAR HEMOGLOBIN 21 pg (27.0-31.0)
[2021-01-23 09:20] LABS: ARTERIAL BLD GAS O2 SATURATION 91.4 % (92-100); ARTERIAL BLD GAS TCO2 CT 23.6; ARTERIAL BLOOD GAS BASE EXCESS -2.1 (-2-2); ARTERIAL BLOOD GAS HCO3 22.4 meq/L (22-26); ARTERIAL BLOOD GAS PCO2 37.1 mmHg (35-45); ARTERIAL BLOOD GAS PO2 59.9 mmHg (80-100)
[2021-01-23 09:28] LABS: ALBUMIN 3.4 gm/dL (3.4-4.8); ALKALINE PHOSPHATASE 134 U/L (40-150); ANION GAP 13 mmol/L (7-16); AST,SGOT 10 U/L (5-34); BILIRUBIN,TOTAL 0.2 mg/dL (0.2-1.2); BLOOD UREA NITROGEN 4 mg/dL (10-20); CALCIUM 9.6 mg/dL (8.4-10.2); CARBON DIOXIDE 22 mmol/L (23-31); CHLORIDE 106 mmol/L (98-107); CREATININE, serum 0.78 mg/dL (0.57-1.11); GLUCOSE 132 mg/dL (70-99); MAGNESIUM 1.9 mg/dL (1.6-2.6); POTASSIUM 3.7 mmol/L (3.5-4.5); SODIUM 141 mmol/L (136-145)
[2021-01-23 09:31] LABS: ALANINE AMINOTRANSFERASE < 6 U/L (0-55)
[2021-01-23 09:32] LABS: COLLECTION METHOD CLEAN CATCH
[2021-01-23 09:34] LABS: TROPONIN-I < 0.010 ng/mL (0.00-0.033)
[2021-01-23 09:40] LABS: INR 1.1 (0.8-3.0)
[2021-01-23 09:42] LABS: PARTIAL THROMBOPLASTIN TIME 35.8 SECONDS (26.0-37.0)
[2021-01-23 09:56] LABS: BASOPHIL 2 % (0-2); EOSINOPHIL 4 % (0-4); LYMPHOCYTE 23 % (20.0-51.0); MYELOCYTE 1 % (0-0); NEUTROPHILS 66 % (42.0-75.2); PLATELET ESTIMATE NORMAL (NORMAL)
[2021-01-23 09:57] LABS: OVALOCYTES 1+
[2021-01-23 09:58] LABS: ANISOCYTOSIS 1+; SCHISTOCYTES 1+
[2021-01-23 10:03] LABS: BUDDING YEAST Present (NOT PRESENT); PH 5 (5-8); SQUAMOUS EPITHELIAL 0-2 /hpf (0-10); URINE APPEARANCE Hazy (CLEAR/HAZY); URINE BACTERIA None Seen (NONE SEEN); URINE BILIRUBIN Negative (NEGATIVE); URINE BLOOD Negative (NEGATIVE); URINE COLOR Yellow (YELLOW); URINE GLUCOSE Negative (NEGATIVE); URINE KETONE Negative (NEGATIVE); URINE LEUKOCYTE ESTERASE 3+ (NEGATIVE); URINE NITRATE Negative (NEGATIVE); URINE PROTEIN(semi-quant) Negative (NEGATIVE); URINE UROBILINOGEN Negative (NEGATIVE)
--- NOTE | 2021-01-23 14:00 | NUR ---
Admission assessment completed, alert/ partially oriented but forgetful and somewhat impulsive, does not appear to be in any pain or acute discomfort, vital signs stable, no reps.difficulty noted, heart RRR/distal pulses are palpable, son present in the room, Med list obtained from [facility], home meds/allergies/pharmacy reviewed, patient had positive UA/ Rocephin given in the ED, PT/OT ordered , patient is weak but steady with stand by assist, she requested flu-vaccine, call light in reach, will continue to monitor
[2021-01-23] MEDS ORDERED: COGENTIN 1MG1 MG/TAB PO (15:53)
[2021-01-23] MEDS ORDERED: CARAFATE 1GM1 G PO (15:56)
[2021-01-23] MEDS ORDERED: ZYPREXA20 MG PO (15:57)
[2021-01-23] MEDS ORDERED: OYSTER SHELL CA1 TA6 PO (15:57)
[2021-01-23] MEDS ORDERED: ATARAX50 MG PO (15:58)
[2021-01-23] MEDS ORDERED: ALBUTEROL SULFAT3 M3 IH (15:59)
[2021-01-23 16:00] VITALS: BP 124/57; PULSE 95; TEMP 98.7
[2021-01-23 20:10] VITALS: BP 133/81; PULSE 93; TEMP 98.6
[2021-01-23 23:38] LABS: STREP SCREEN NEGATIVE
[2021-01-24 00:18] VITALS: BP 113/51; PULSE 86; TEMP 98
[2021-01-24 04:25] VITALS: BP 119/51; PULSE 87; TEMP 98.4
[2021-01-24 06:56] LABS: MEAN CELL VOLUME 74 fl (80.0-100.0); MEAN CORPUSCULAR HGB CONC 28 g/dl (33.0-37.0); MEAN PLATELET VOLUME 8.8 fl (7.4-10.4); PLATELET COUNT 320 K/mm3 (130-400); RED BLOOD COUNT 3.98 M/mm3 (4.10-5.30); REDCELL DISTRIBUTION WIDTH-CV 18.5 % (11.5-14.5)
[2021-01-24 07:07] LABS: HEMATOCRIT 29.6 % (37.0-47.0); HEMOGLOBIN 8.2 g/dl (12.5-16.0); MEAN CORPUSCULAR HEMOGLOBIN 21 pg (27.0-31.0)
[2021-01-24 07:10] LABS: CALCIUM 9.5 mg/dL (8.4-10.2); CREATININE, serum 0.72 mg/dL (0.57-1.11); POTASSIUM 3.7 mmol/L (3.5-4.5)
[2021-01-24 07:56] VITALS: BP 116/66; PULSE 80; TEMP 98.2
--- NOTE | 2021-01-24 09:37 | NUR ---
PT RESTING IN BED. SHIFT ASSESSMENT COMPLETED. MORNING MEDICATIONS GIVEN. DENIES ANY NEEDS AT THIS TIME. REPORTS SHE HAS NO PAIN OR BURING WITH URINATION. WILL CONTINUE TO MONITOR.
[2021-01-24] MEDS ORDERED: PLAVIX 75MG TAB75 MG PO (10:53)
--- NOTE | 2021-01-24 11:37 | NUR ---
First visit from the data warehouse manager. No needs right now.
--- NOTE | 2021-01-24 11:38 | NUR ---
RODGER attended clinical rounds. The patient is to have a CT scan of her head today and then possibly discharge afterwards. The hospitalist discussed getting home health services started upon discharge. The patient and her was interested in home health. RODGER then followed up with the patient and her , Jesse (ph#[phone]), to discuss discharge plan. The patient lives in [place] with Jesse. The patient reports independence with ADLs and has a walker and rollator. The patient's PCP is Dr. Mary Stauffer and she receives her medications from [facility]. She reports no difficulties obtaining her meds. The patient's DPOA-HC is in EMR and it designates her and son, Barry Lipscomb (ph#[phone]). Barry also lives in [place]. The patient confirms that she would like to return home with her . SW reviewed home health and provided them with Medicare.gov's list of home health agencies that serve [place]. The patient and her chose [facility]. RODGER contacted and faxed a referral to Kirsten at [facility]. Kirsten reports that they are able to accept the patient for services. She reports that their office does close at 1300 today and if the patient does dischage later today, RODGER will just need to leave a message for their intrusion analysttrain caller. *Discharge plan: home with and home health*
[2021-01-24] MEDS ORDERED: OMNICEF 300MG300 MG PO (11:46)
[2021-01-24] MEDS ORDERED: FERROUS SU325 MG/TAB PO (11:46)
[2021-01-24 12:05] VITALS: BP 133/60; PULSE 92; TEMP 97.4
--- NOTE | 2021-01-24 16:02 | NUR ---
The patient discharged back home with her today, 01/24, with home health services for care home/PT/OT from [facility]. SW notified [facility]'s asphalt roller person service and faxed them discharge orders. No additional needs at this time.
== END 2021-01-24 12:37 | disposition home or self-care (01) ==
LOC: COL.ER 08:44 → MEDICAL 10:15
PROVIDERS: Family Medicine; ADMIT Internal Medicine
DX: G93.41 Metabolic encephalopathy (principal); N39.0 Urinary tract infection, site not specified; R53.1 Weakness; R63.4 Abnormal weight loss; D50.9 Iron deficiency anemia, unspecified; J02.9 Acute pharyngitis, unspecified; I10 Essential (primary) hypertension; K21.9 Gastro-esophageal reflux disease without esophagitis; E78.5 Hyperlipidemia, unspecified; E11.9 Type 2 diabetes mellitus without complications; K25.9 Gastric ulcer, unspecified as acute or chronic, without hemorrhage or perforation; J44.9 Chronic obstructive pulmonary disease, unspecified; I25.10 Atherosclerotic heart disease of native coronary artery without angina pectoris; F32.A Depression, unspecified; F41.9 Anxiety disorder, unspecified; Z23 Encounter for immunization; Z79.84 Long term (current) use of oral hypoglycemic drugs; Z79.899 Other long term (current) drug therapy; Z20.822 Contact with and (suspected) exposure to COVID-19; Z79.02 Long term (current) use of antithrombotics/antiplatelets; Z79.82 Long term (current) use of aspirin; Z87.891 Personal history of nicotine dependence
CPT/HCPCS: G0008; G0378; J0696; J1650; J7030

== ENCOUNTER 2021-02-08 13:52 | Emergency (ER) | payer MEDICARE, MEDICAID ==
[~2021-02-08] VITALS: Ht 162.6 cm; Wt 60.0 kg
[~2021-02-08 13:52] MED LIST changes: +ALBUTEROL SULFAT3 M3 IH; +ATARAX50 MG PO; +COGENTIN 1MG1 MG/TAB PO; +FERROUS SU325 MG/TAB PO; +OYSTER SHELL CA1 TA6 PO; +ZYPREXA20 MG PO
[2021-02-08 15:00] LABS: BASO # 0.1 K/mm3 (0.0-0.2); BASO % 0.8 % (0.0-2.0); EOS # 0.2 K/mm3 (0.0-0.7); EOS % 2.5 % (0-4.0); GRAN # 4.5 K/mm3 (1.4-6.5); GRAN % 70.4 % (42.2-75.2); LYMPH # 1.3 K/mm3 (1.2-3.4); LYMPH % 19.7 % (20.0-51.0); MEAN CELL VOLUME 74 fl (80.0-100.0); MEAN CORPUSCULAR HGB CONC 28 g/dl (33.0-37.0); MEAN PLATELET VOLUME 8.8 fl (7.4-10.4); MONO # 0.4 K/mm3 (0.1-0.6); PLATELET COUNT 280 K/mm3 (130-400); RED BLOOD COUNT 4.43 M/mm3 (4.10-5.30); REDCELL DISTRIBUTION WIDTH-CV 19.5 % (11.5-14.5)
[2021-02-08 15:01] LABS: HEMATOCRIT 32.7 % (37.0-47.0); HEMOGLOBIN 9.2 g/dl (12.5-16.0); MEAN CORPUSCULAR HEMOGLOBIN 21 pg (27.0-31.0)
[2021-02-08 15:29] LABS: COLLECTION METHOD CLEAN CATCH
[2021-02-08 15:30] LABS: ALANINE AMINOTRANSFERASE 6 U/L (0-55); ALBUMIN 3.8 gm/dL (3.4-4.8); ALKALINE PHOSPHATASE 122 U/L (40-150); ANION GAP 13 mmol/L (7-16); AST,SGOT 12 U/L (5-34); BILIRUBIN,TOTAL 0.4 mg/dL (0.2-1.2); BLOOD UREA NITROGEN 13 mg/dL (10-20); C-REACTIVE PROTEIN 2.52 mg/dL (0.00-0.50); CALCIUM 9.3 mg/dL (8.4-10.2); CARBON DIOXIDE 20 mmol/L (23-31); CHLORIDE 95 mmol/L (98-107); GLUCOSE 147 mg/dL (70-99); POTASSIUM 3.9 mmol/L (3.5-4.5); SODIUM 128 mmol/L (136-145); TOTAL PROTEIN 6.8 gm/dL (6.2-8.1)
[2021-02-08 15:40] LABS: TROPONIN-I < 0.010 ng/mL (0.00-0.033)
[2021-02-08 15:41] LABS: BUDDING YEAST Present (NOT PRESENT); MUCOUS Present (NOT PRESENT); PH 5 (5-8); URINE APPEARANCE Cloudy (CLEAR/HAZY); URINE BACTERIA Rare (NONE SEEN); URINE BILIRUBIN Negative (NEGATIVE); URINE BLOOD Negative (NEGATIVE); URINE COLOR Yellow (YELLOW); URINE GLUCOSE Negative (NEGATIVE); URINE KETONE Negative (NEGATIVE); URINE LEUKOCYTE ESTERASE 2+ (NEGATIVE); URINE NITRATE Negative (NEGATIVE); URINE PROTEIN(semi-quant) Negative (NEGATIVE); URINE UROBILINOGEN Negative (NEGATIVE)
[2021-02-08 18:41] LABS: CALCIUM 8.5 mg/dL (8.4-10.2); CREATININE, serum 0.71 mg/dL (0.57-1.11); POTASSIUM 4.1 mmol/L (3.5-4.5)
[2021-02-08 19:58] VITALS: BP 127/70; PULSE 88; TEMP 98.1
[2021-02-10] MEDS ORDERED: MACROBID 1100 MG/CAP PO (16:15)
== END 2021-02-08 19:55 | disposition home or self-care (01) ==
LOC: COL.ER 13:52
PROVIDERS: Nurse Practitioner
DX: N39.0 Urinary tract infection, site not specified (principal); E87.1 Hypo-osmolality and hyponatremia; I10 Essential (primary) hypertension; E11.9 Type 2 diabetes mellitus without complications; J44.9 Chronic obstructive pulmonary disease, unspecified; F32.A Depression, unspecified; F20.9 Schizophrenia, unspecified; F17.200 Nicotine dependence, unspecified, uncomplicated; Z79.899 Other long term (current) drug therapy
CPT/HCPCS: J0696; J7030

== ENCOUNTER 2021-05-09 04:09 | Inpatient (IN) | payer MEDICARE, MEDICAID, OTHER ==
[~2021-05-09] VITALS: Ht 170.2 cm; Wt 58.0 kg
[2021-05-09] VITALS (442 sets, daily range): BP systolic 72–135; BP diastolic 53–83; PULSE 65–91; TEMP 97.8–99.1; O2SAT 88–100
[2021-05-09 04:41] LABS: COLLECTION METHOD IN
[2021-05-09 04:54] LABS: BUDDING YEAST Present (NOT PRESENT); MUCOUS Present (NOT PRESENT); PH 5 (5-8); SQUAMOUS EPITHELIAL 0-2 /hpf (0-10); URINE APPEARANCE Clear (CLEAR/HAZY); URINE BACTERIA None Seen /hpf (NONE SEEN); URINE BILIRUBIN Negative (NEGATIVE); URINE BLOOD Negative (NEGATIVE); URINE COLOR Colorless (YELLOW); URINE GLUCOSE Negative (NEGATIVE); URINE KETONE Negative (NEGATIVE); URINE LEUKOCYTE ESTERASE Negative (NEGATIVE); URINE NITRATE Negative (NEGATIVE); URINE PROTEIN(semi-quant) Negative (NEGATIVE); URINE RBC None Seen /hpf (0-2); URINE UROBILINOGEN Negative (NEGATIVE)
[2021-05-09 04:55] LABS: TRICYCLIC ANTIDEPRESS URINE NEGATIVE
[2021-05-09 05:30] LABS: BASO # 0.1 K/mm3 (0.0-0.2); BASO % 0.7 % (0.0-2.0); EOS # 0.3 K/mm3 (0.0-0.7); EOS % 3.6 % (0.0-4.0); GRAN # 4.5 K/mm3 (1.4-6.5); GRAN % 65.5 % (42.2-75.2); HEMATOCRIT 47.5 % (37.0-47.0); HEMOGLOBIN 14.7 g/dl (12.5-16.0); LYMPH # 1.6 K/mm3 (1.2-3.4); LYMPH % 23.4 % (20.0-51.0); MEAN CELL VOLUME 87 fl (80.0-100.0); MEAN CORPUSCULAR HEMOGLOBIN 27 pg (27-31); MEAN CORPUSCULAR HGB CONC 31 g/dl (33.0-37.0); MEAN PLATELET VOLUME 8.5 fl (7.4-10.4); MONO # 0.5 K/mm3 (0.1-0.6); MONO % 6.5 % (1.7-9.3); PLATELET COUNT 221 K/mm3 (130-400); RED BLOOD COUNT 5.44 M/mm3 (4.10-5.30); REDCELL DISTRIBUTION WIDTH-CV 18.2 % (11.5-14.5)
[2021-05-09 06:03] LABS: ALANINE AMINOTRANSFERASE 14 U/L (0-55); ALBUMIN 4.1 gm/dL (3.4-4.8); ALKALINE PHOSPHATASE 103 U/L (40-150); ANION GAP 13 mmol/L (7-16); AST,SGOT 16 U/L (5-34); BILIRUBIN,TOTAL 0.2 mg/dL (0.2-1.2); BLOOD UREA NITROGEN 15 mg/dL (10-20); CALCIUM 9.4 mg/dL (8.4-10.2); CARBON DIOXIDE 22 mmol/L (23-31); CHLORIDE 106 mmol/L (98-107); CREATININE, serum 0.82 mg/dL (0.57-1.11); GLUCOSE 142 mg/dL (70-99); POTASSIUM 4.1 mmol/L (3.5-4.5); SODIUM 141 mmol/L (136-145); TOTAL PROTEIN 6.9 gm/dL (6.2-8.1)
[2021-05-09 06:19] LABS: ALCOHOL(ethanol),MEDICAL < 10 mg/dL (0-10); SALICYLATE < 5.0 mg/dL (15.0-30.0)
[2021-05-09] MEDS ORDERED: LIPITOR 40MG TA40 MG PO (06:27)
[2021-05-09] MEDS ORDERED: WELLBUTRIN XL150 MG PO (06:27)
[2021-05-09] MEDS ORDERED: PEPCID 20MG TAB20 MG PO (06:28)
[2021-05-09] MEDS ORDERED: PLAVIX 75MG TAB75 MG PO (06:28)
[2021-05-09] MEDS ORDERED: MELATONIN5 M1 SL (06:28)
[2021-05-09] MEDS ORDERED: BYSTOLIC2.5 MG PO (06:29)
[2021-05-09] MEDS ORDERED: GLUCOPHAGE500 MG/TAB PO (06:29)
[2021-05-09] MEDS ORDERED: REXULTI3 MG PO (06:30)
[2021-05-09] MEDS ORDERED: OYSTER SHELL CA1 TA6 PO ×2 (06:30→06:34)
[2021-05-09] MEDS ORDERED: VITAMIN B12 1541 TAB PO (06:31)
[2021-05-09 07:22] LABS: INR 1.2 (0.8-3.0); PROTHROMBIN TIME 13.2 SECONDS (9.7-12.8)
--- NOTE | 2021-05-09 07:50 | NUR ---
Pt arrived to ICU 8. ED RN did not notify Posion Control - I did notify and provide complete update to Natividad at the Poison Control (Case # [id number]) at 0844. Recommendations recived and information relayed to MD Jaime and appropriate orders entered. Upon arrival pt is lethargic, opens eyes to voice and verbal stimuli, pt is unable to follow commands. Vital signs stable at the moment Pt's Jesse at bedside, admission information obtained from him Pt's meds and (Jesse's meds confirmed with [facility]) and updated med list provided to Poison Control
--- NOTE | 2021-05-09 09:56 | NUR ---
RODGER met with the patient and her , Jesse (ph#[phone]), to discuss discharge plan. The patient was sleeping. The patient lives in [place] with her . Jesse reports that the patient is independent with ADLs and has a walker available. The patient's PCP is Dr. Mary Stauffer and she receives her medications from [facility]. He reports no difficulties obtaining her meds. The patient's DPOA-HC is in EMR and it designates her and their son, Barry Lipscomb (ph#[phone]). Jesse reports no concerns about the patient returning home with him upon discharge. The patient had possible accidental ingestion of multiple prescription/OTC drugs. SW addressed the patient's medications at home. Jesse reports that [facility] sets the patient and his meds up in bubble packs. He reports that the patient has never had any problems taking her medications as precribed, until yesterday. He states that the patient woke up early yesterday and took her meds. He states that she then took a nap and when she woke up, she took his meds from his bubble pack. He believes that the patient was disoriented from her nap. SW to continue to follow. *Discharge plan: home with *
[2021-05-09 12:27] LABS: CALCIUM 8.4 mg/dL (8.4-10.2); CREATININE, serum 0.81 mg/dL (0.57-1.11); MAGNESIUM 1.8 mg/dL (1.6-2.6); POTASSIUM 4.5 mmol/L (3.5-4.5)
[2021-05-09 13:52] LABS: INR 1.1 (0.8-3.0); PROTHROMBIN TIME 12.3 SECONDS (9.7-12.8)
--- NOTE | 2021-05-09 14:29 | NUR ---
Throughout the day Natividad at Poison Control has been updated 4 times with new results on all updates including hypotension/labs/EKG/heart-rate/medications administered - Recommendations then relayed to MD Jaime and VERONIQUE orders entered
--- NOTE | 2021-05-09 16:03 | NUR ---
rodent control worker spoke with Lauryn at Dr Stauffer's office and confirmed that they are concerned with patient's increased memory impairment and food insecurities. Patient dangelo has [facility] for custodial education for an injection for migraines. Worker spoke with nurse Kiana from [facility] [phone] to confirm the above information. Case management will continue to follow and assist with securing a safe discharge plan.
--- NOTE | 2021-05-09 16:05 | NUR ---
novelty worker returned a call and left message to the [facility] call center.
--- NOTE | 2021-05-09 19:15 | NUR ---
Received report from FATIMAH Newberry.
--- NOTE | 2021-05-09 19:30 | NUR ---
Patient resting quietly in bed with eyes closed. Patient wakens easily to speech although she is quite drowsy and speech is somewhat slurred. She is oriented to self, location, and current president but is somewhat confused regarding situation and exact date. She follows verbal commands. All vitals within normal limits. She denies any pain or discomfort.
[2021-05-09 23:37] LABS: HEMATOCRIT 42.8 % (37.0-47.0); HEMOGLOBIN 13.2 g/dl (12.5-16.0)
[2021-05-10] VITALS (339 sets, daily range): BP systolic 131–163; BP diastolic 61–86; PULSE 89–102; TEMP 98.1–98.7; O2SAT 63–100
--- NOTE | 2021-05-10 05:47 | NUR ---
Patient more awake and oriented beginning around 0130. Her mentation has gradually improved over the last few hours. Patient provided with ice chips per her request and progressed to ice water, applesauce, and crackers, all of which were tolerated well and without difficulty. Divina hospitalist, notified. Orders received for a general diet to begin with this morning's breakfast.
[2021-05-10 05:59] LABS: BASO % 0.4 % (0.0-2.0); EOS # 0.1 K/mm3 (0.0-0.7); EOS % 1.1 % (0.0-4.0); GRAN # 8.5 K/mm3 (1.4-6.5); GRAN % 78.6 % (42.2-75.2); HEMATOCRIT 41.6 % (37.0-47.0); HEMOGLOBIN 12.5 g/dl (12.5-16.0); LYMPH # 1.4 K/mm3 (1.2-3.4); LYMPH % 12.7 % (20.0-51.0); MEAN CELL VOLUME 91 fl (80.0-100.0); MEAN CORPUSCULAR HEMOGLOBIN 28 pg (27-31); MEAN CORPUSCULAR HGB CONC 30 g/dl (33.0-37.0); MONO # 0.7 K/mm3 (0.1-0.6); MONO % 6.7 % (1.7-9.3); PLATELET COUNT 228 K/mm3 (130-400); RED BLOOD COUNT 4.55 M/mm3 (4.10-5.30); REDCELL DISTRIBUTION WIDTH-CV 18.1 % (11.5-14.5)
[2021-05-10 06:14] LABS: INR 1.1 (0.8-3.0)
[2021-05-10 06:16] LABS: CREATININE, serum 0.72 mg/dL (0.57-1.11); POTASSIUM 3.6 mmol/L (3.5-4.5)
--- NOTE | 2021-05-10 15:31 | NUR ---
Throughout the entire shift, patient has been impulsive and frequently gets out of bed for various reasons. She is often looking for a family member that is not present. Sometimes she thinks she is at home, other times she thinks she is in the hospital. Patient does not remember what is told to her and needs frequent reminders and reorientation. Bed Alarm is on and patient frequently sets it off trying to get up and walk around independently. She is reminded that since she is a high fall risk, she needs to stay in bed and if she is to walk around, needs to call for help.
--- NOTE | 2021-05-10 15:33 | NUR ---
Report given to FATIMAH Barclay. Patient will be taken to room 354
--- NOTE | 2021-05-10 16:30 | NUR ---
Patient arrived to room 354 from ICU at this time, she is alert/disoriented, easily redirected, she transferred from wheelchair to bathroom and back to bed with only stand by asssitance, vital signs at this time are stable, she denies pain or discomfort, bed alarm is set and call light in reach , will continue to monitor closely
--- NOTE | 2021-05-10 20:21 | NUR ---
Tx given via mouthpiece. Tolerated well.
--- NOTE | 2021-05-10 22:05 | NUR ---
PATIENT ALERT AND PARTIALLY ORIENTED. STILL CONFUSED ABOUT WHERE SHE IS AND WHY SHE IS HERE. NEEDS FREQUENT REORIENTATION AND CONTINUES TO TRY TO GET OUT OF BED TO LOOK FOR THINGS. HS MEDS GIVEN. PICC R UA FLUSHED BUT DID NOT GET BLOOD RETURN AT THIS TIME. BED ALARMS ARE ON. NO FURTHER NEEDS AT THIS TIME.
--- NOTE | 2021-05-11 00:10 | NUR ---
Pt requesting tx at this time. I informed pt that we could do tx this time but that if her HR was over 100 and breath sounds clear we would not be able to do anymore txs early. Tx tolerated well.
[2021-05-11 00:26] VITALS: BP 143/86; PULSE 109; TEMP 98.6
[2021-05-11 04:15] VITALS: BP 101/79; PULSE 105; TEMP 97.7
[2021-05-11 06:41] LABS: BASO % 0.3 % (0.0-2.0); EOS # 0.1 K/mm3 (0.0-0.7); EOS % 1.3 % (0.0-4.0); GRAN # 6.9 K/mm3 (1.4-6.5); GRAN % 74.4 % (42.2-75.2); HEMATOCRIT 43.2 % (37.0-47.0); HEMOGLOBIN 13.7 g/dl (12.5-16.0); LYMPH # 1.5 K/mm3 (1.2-3.4); LYMPH % 15.8 % (20.0-51.0); MEAN CELL VOLUME 87 fl (80.0-100.0); MEAN CORPUSCULAR HEMOGLOBIN 28 pg (27-31); MEAN CORPUSCULAR HGB CONC 32 g/dl (33.0-37.0); MEAN PLATELET VOLUME 8.5 fl (7.4-10.4); MONO # 0.7 K/mm3 (0.1-0.6); MONO % 7.9 % (1.7-9.3); PLATELET COUNT 206 K/mm3 (130-400); RED BLOOD COUNT 4.99 M/mm3 (4.10-5.30); REDCELL DISTRIBUTION WIDTH-CV 17.3 % (11.5-14.5)
[2021-05-11 06:58] LABS: CALCIUM 9.2 mg/dL (8.4-10.2); CREATININE, serum 0.73 mg/dL (0.57-1.11); POTASSIUM 3.4 mmol/L (3.5-4.5)
[2021-05-11 07:38] VITALS: BP 163/78; PULSE 101; TEMP 98.1
[2021-05-11 08:20] LABS: INR 1.1 (0.8-3.0); PROTHROMBIN TIME 12.5 SECONDS (9.7-12.8)
--- NOTE | 2021-05-11 08:40 | NUR ---
Shift assessment complete. Pt up ad severo in room, occasionally walks out into alvarez but is easily redirected. Alert, partially oriented, occasional visual hallucinations. Pt pleasant and cooperative. Vitals stable. HR slightly tachy 100-110, rate regular. Updated poison control via phone and they are signing off. Pt denies needs at this time. Continuing to monitor.
[2021-05-11 11:32] VITALS: BP 145/82; PULSE 100; TEMP 98
[2021-05-11] MEDS ORDERED: DIFLUCAN 100MG100 MG PO (12:45)
[2021-05-11] MEDS ORDERED: ANORO IH (12:47)
[2021-05-11] MEDS ORDERED: PROVENTIL0.09 MG/A1 IH (12:47)
--- NOTE | 2021-05-11 13:35 | NUR ---
First visit from the stock parts inspector. No needs right now.
--- NOTE | 2021-05-11 15:53 | NUR ---
Discharge instructions discussed w/pt and . All questions answered. PICC to right upper arm removed by Trinidad SHERIDAN and education provided. Pt escorted out w/all belongings via wheelchair at this time.
--- NOTE | 2021-05-14 10:01 | NUR ---
clerical production worker contacted [facility] and faxed orders along with history and physical and discharge summary.
--- NOTE | 2021-05-15 10:35 | NUR ---
SW contacted [facility] and they received the patient's information and are in the process of getting her scheduled.
== END 2021-05-11 14:40 | disposition home health service (06) | DRG 917 ==
LOC: COL.ER 04:09 → ICU 05:45 → MEDICAL 05-10 17:22
PROVIDERS: Emergency Medicine; Internal Medicine Pulmonary Disease; Physician Assistant; Student in an Organized Health Care Education/Training Program; ADMIT Internal Medicine
PROC: 02HV33Z Insertion of Infusion Device into Superior Vena Cava, Percutaneous Approach (ICD-10-PCS; principal; 2021-05-09)
DX: T39.011A Poisoning by aspirin, accidental (unintentional), initial encounter (principal); G92.9 Unspecified toxic encephalopathy; N39.0 Urinary tract infection, site not specified; B37.49 Other urogenital candidiasis; I50.22 Chronic systolic (congestive) heart failure; T46.6X1A Poisoning by antihyperlipidemic and antiarteriosclerotic drugs, accidental (unintentional), initial encounter; T44.3X1A Poisoning by other parasympatholytics [anticholinergics and antimuscarinics] and spasmolytics, accidental (unintentional), initial encounter; T43.591A Poisoning by other antipsychotics and neuroleptics, accidental (unintentional), initial encounter; T45.521A Poisoning by antithrombotic drugs, accidental (unintentional), initial encounter; T47.4X1A Poisoning by other laxatives, accidental (unintentional), initial encounter; T47.0X1A Poisoning by histamine H2-receptor blockers, accidental (unintentional), initial encounter; T44.7X1A Poisoning by beta-adrenoreceptor antagonists, accidental (unintentional), initial encounter; T47.1X1A Poisoning by other antacids and anti-gastric-secretion drugs, accidental (unintentional), initial encounter; T50.1X1A Poisoning by loop [high-ceiling] diuretics, accidental (unintentional), initial encounter; T42.4X1A Poisoning by benzodiazepines, accidental (unintentional), initial encounter; T45.511A Poisoning by anticoagulants, accidental (unintentional), initial encounter; T42.6X1A Poisoning by other antiepileptic and sedative-hypnotic drugs, accidental (unintentional), initial encounter; T46.7X1A Poisoning by peripheral vasodilators, accidental (unintentional), initial encounter; T46.5X1A Poisoning by other antihypertensive drugs, accidental (unintentional), initial encounter; I11.0 Hypertensive heart disease with heart failure; E11.9 Type 2 diabetes mellitus without complications; J44.9 Chronic obstructive pulmonary disease, unspecified; F20.9 Schizophrenia, unspecified; I25.10 Atherosclerotic heart disease of native coronary artery without angina pectoris; F32.9 Major depressive disorder, single episode, unspecified; F41.1 Generalized anxiety disorder; K21.9 Gastro-esophageal reflux disease without esophagitis; E78.5 Hyperlipidemia, unspecified; D50.9 Iron deficiency anemia, unspecified; E87.6 Hypokalemia; M25.551 Pain in right hip; W18.30XA Fall on same level, unspecified, initial encounter; Y93.9 Activity, unspecified; Y92.009 Unspecified place in unspecified non-institutional (private) residence as the place of occurrence of the external cause; Z95.5 Presence of coronary angioplasty implant and graft; Z88.0 Allergy status to penicillin; Z88.2 Allergy status to sulfonamides; Z79.82 Long term (current) use of aspirin; Z87.891 Personal history of nicotine dependence
CPT/HCPCS: 99223-AI; 99233-AI; 99239; C1751; C9113; J1610; J1815; J2405; J3475; J7030; J7060

== ENCOUNTER 2021-06-15 12:30 | Day surgery (SDC) | payer MEDICARE, MEDICAID ==
[~2021-06-15] VITALS: Ht 162.6 cm; Wt 56.1 kg
[~2021-06-15 12:30] MED LIST changes: +DIFLUCAN 100MG100 MG PO; +MELATONIN5 M1 SL; +PEPCID 20MG TAB20 MG PO; +PROVENTIL0.09 MG/A1 IH; +VITAMIN B12 1541 TAB PO
[2021-06-15] MEDS ORDERED: XANAX 1MG1 MG PO (13:41)
[2021-06-15] MEDS ORDERED: PERIDEX (CHLOR480 ML MM (13:44)
[2021-06-15] MEDS ORDERED: FLONASEALLERGY NS (13:46)
[2021-06-15] MEDS ORDERED: NITROSTAT0.4 MG/TAB SL (13:48)
[2021-06-15] MEDS ORDERED: OSCAL 500 TAB500 MG PO (13:49)
[2021-06-15] MEDS ORDERED: REXULTI3 MG PO (13:49)
[2021-06-15 13:51] VITALS: BP 146/83; PULSE 72; TEMP 97.6
[2021-06-15 15:00] VITALS: BP 130/68; PULSE 76; TEMP 97.3
--- NOTE | 2021-06-15 15:00 | NUR ---
Pt arrived from procedure drowsy but oriented. Vitals obtained before the pt ambulated from he chair to the bathroom. Verbal report obtained. Water without ice, a warm muffin and vanilla pudding provided per request. Call khan is within reach on side table if needed.
[2021-06-15 15:15] VITALS: BP 136/76; PULSE 74
--- NOTE | 2021-06-15 15:15 | NUR ---
Pt continues to deny nausea. No vomiting. Vitals obtained and are WNL. Call khan remains within reach.
[2021-06-15 15:30] VITALS: BP 143/74; PULSE 67
--- NOTE | 2021-06-15 15:44 | NUR ---
Pt dismissed from endo via wheelchair by Susan SHERIDAN to pt entrence and transferred into the care of her , who is present to drive and has DC packet.
== END 2021-06-15 15:40 | disposition home or self-care (01) ==
LOC: SDCO 12:30
DX: K29.30 Chronic superficial gastritis without bleeding (principal); K29.80 Duodenitis without bleeding; K25.4 Chronic or unspecified gastric ulcer with hemorrhage; K44.9 Diaphragmatic hernia without obstruction or gangrene; D50.9 Iron deficiency anemia, unspecified; R13.10 Dysphagia, unspecified; R19.7 Diarrhea, unspecified; K21.9 Gastro-esophageal reflux disease without esophagitis; Z79.899 Other long term (current) drug therapy; Z90.49 Acquired absence of other specified parts of digestive tract
CPT/HCPCS: J2704; J7030

== ENCOUNTER → 2021-08-14 | Outpatient (CLI) | payer MEDICARE, MEDICAID ==
[~2021-08-14] MED LIST changes: +OSCAL 500 TAB500 MG PO
== END ==
LOC: COL.RAD 07:13
DX: K25.9 Gastric ulcer, unspecified as acute or chronic, without hemorrhage or perforation (principal)
CPT/HCPCS: A9541

== ENCOUNTER 2021-08-30 11:03 | Emergency (ER) | payer MEDICARE, MEDICAID ==
[~2021-08-30] VITALS: Ht 162.6 cm; Wt 55.5 kg
[2021-08-30 11:26] VITALS: BP 137/78; PULSE 78; TEMP 97.4
== END 2021-08-30 11:43 | disposition left against medical advice (07) ==
LOC: COL.ER 11:03
DX: R53.81 Other malaise (principal)